=== PATIENT | male | born 1950 ===

== ENCOUNTER 2021-08-05 10:53 | Outpatient (REF) | payer MEDICARE, OTHER, SELFPAY ==
[2021-08-05 12:46] LABS: Hematocrit 39.3 % (42.0-52.0); Mean Corpuscular HGB Conc 33.1 g/dl (31.0-36.0); Mean Corpuscular Hemoglobin 31.8 pg (27.0-33.0); Mean Corpuscular Volume 96.1 fL (80.0-98.0); Platelet Count 302 X10*3/uL (160-400); Red Blood Count 4.09 X10*6/uL (4.60-5.80); Red Cell Distribution Width 15.1 % (11.0-16.0); White Blood Count 4.2 X10*3/uL (4.8-10.8)
[2021-08-05 13:18] LABS: Alanine Aminotransferase 7 U/L (0-40); Albumin Level 4.1 g/dL (3.5-5.0); Alkaline Phosphatase 88 U/L (39-117); Aspartate Amino Transferase 18 U/L (5-37); Bilirubin Direct 0.2 mg/dL (0.0-0.5); Bilirubin Total 0.5 mg/dL (0.0-1.0); C Reactive Protein 0.73 mg/dL (< or = 0.50); Estimated Glomerular Filt Rate > 60; Total Protein 6.9 g/dL (6.5-8.0)
[2021-08-05 13:28] LABS: Erythrocyte Sedimentation Rate 40 MM/HR (0-15)
== END 2021-08-05 10:54 | disposition home or self-care (01) ==
LOC: HO.LAB 10:53
PROVIDERS: PCP Hospitalist; Visit Provider Internal Medicine
DX: M86.9 Osteomyelitis, unspecified (principal)
CPT/HCPCS: 36415; 80076; 82565; 85027; 85652; 86140; 99202

== ENCOUNTER 2021-08-20 08:14 | Outpatient (REF) | payer MEDICARE, OTHER, SELFPAY ==
--- NOTE | 2021-08-20 11:01 | P.PICC_ITS ---
PICC Line Insertion NPICC Diagnosis: OSTEOMYELITIS Indication: HALFWAY IV ANTIBIOTICS Pertinent Labs: REVIEWED Technique: Following informed consent including risks, benefits and alternatives and using sterile technique including cap and mask, sterile gown, glove and drape, the LEFT arm was prepped and draped in the usual sterile fashion of full barrier technique with CHG. Following completion of [place] Protocol the skin and soft tissues were anesthetized with 1% Lidocaine plain. Using ultrasound guidance, BASILIC vein access was obtained IN SINGLE ATTEMPT BY THIS RN; x1 UNSUCCESSFUL ATTEMPT BY RN RUIZ PRIOR, SO TOTAL x2 ATTEMPTS. Over an 0.018 wire through peel-away sheath, a 4-SAO TOMEAN, SINGLE LUMEN, PASV PICC line was positioned. Catheter length is 40 CM internal length, 0 CM external length, for a total trimmed length of 40 CM. The procedure was performed in S-272. Tip verification was performed by Josr De Anda with Sherlock 3CG. Tip located in SVC. Ultrasound was used to document vein patency and for needle entry. A formal ultrasound picture and cardiac rhythm strip was recorded. V[employer] Professor has released the line for use and it is currently dressed with a StatLock, Tegaderm, and CHG disc. Verification has been performed for blood return and line patency. Arm Circumference: 26 CM Equipment: [employer] POWERPICC SOLO Catheter Type: 4-SAO TOMEAN, SINGLE LUMEN, PASV Lot #: [id number]
== END 2021-08-20 08:15 | disposition home or self-care (01) ==
LOC: HO.RADIR 08:14
PROVIDERS: PCP Hospitalist; Visit Provider Internal Medicine
DX: M86.9 Osteomyelitis, unspecified (principal)
CPT/HCPCS: 36573; 96365; C1751; C1894; J0878

== ENCOUNTER 2021-08-20 12:11 | Outpatient (REF) | payer MEDICARE, OTHER, SELFPAY | END 2021-08-20 12:12 | disposition home or self-care (01) | LOC: HO.MDS 12:11 | PROVIDERS: Visit Provider Internal Medicine | DX: M86.8X7 Other osteomyelitis, ankle and foot (principal); B95.62 Methicillin resistant Staphylococcus aureus infection as the cause of diseases classified elsewhere; I70.201 Unspecified atherosclerosis of native arteries of extremities, right leg; Z45.2 Encounter for adjustment and management of vascular access device | CPT/HCPCS: 96365; J0878 ==

== ENCOUNTER 2021-08-21 | Outpatient (REF) | payer MEDICARE, OTHER, SELFPAY | END 2021-08-21 00:01 | disposition home or self-care (01) | LOC: HO.MDS | PROVIDERS: Visit Provider Internal Medicine | DX: M86.8X7 Other osteomyelitis, ankle and foot (principal); R78.81 Bacteremia; B95.62 Methicillin resistant Staphylococcus aureus infection as the cause of diseases classified elsewhere; Z45.2 Encounter for adjustment and management of vascular access device | CPT/HCPCS: 96365 ==

== ENCOUNTER 2021-08-21 07:18 | Outpatient (REF) | payer MEDICARE, OTHER, SELFPAY | END 2021-08-21 07:19 | disposition home or self-care (01) | LOC: HO.MDS 07:18 | PROVIDERS: Visit Provider Internal Medicine | DX: M86.8X7 Other osteomyelitis, ankle and foot (principal); B95.62 Methicillin resistant Staphylococcus aureus infection as the cause of diseases classified elsewhere; I70.201 Unspecified atherosclerosis of native arteries of extremities, right leg; Z45.2 Encounter for adjustment and management of vascular access device | CPT/HCPCS: 96365; J0878 ==

== ENCOUNTER 2021-08-22 09:22 | Outpatient (REF) | payer MEDICARE, OTHER, SELFPAY | END 2021-08-22 09:23 | disposition home or self-care (01) | LOC: HO.MDS 09:22 | PROVIDERS: PCP Hospitalist; Visit Provider Internal Medicine | DX: M86.8X7 Other osteomyelitis, ankle and foot (principal); R78.81 Bacteremia; B95.62 Methicillin resistant Staphylococcus aureus infection as the cause of diseases classified elsewhere; Z45.2 Encounter for adjustment and management of vascular access device | CPT/HCPCS: 96365; J0878 ==

== ENCOUNTER 2021-08-23 08:29 | Outpatient (REF) | payer MEDICARE, OTHER, SELFPAY | END 2021-08-23 08:30 | disposition home or self-care (01) | LOC: HO.MDS 08:29 | PROVIDERS: PCP Hospitalist; Visit Provider Internal Medicine | DX: M86.8X7 Other osteomyelitis, ankle and foot (principal); R78.81 Bacteremia; B95.62 Methicillin resistant Staphylococcus aureus infection as the cause of diseases classified elsewhere; Z45.2 Encounter for adjustment and management of vascular access device | CPT/HCPCS: 96365; J0878 ==

== ENCOUNTER 2021-08-24 07:38 | Outpatient (REF) | payer MEDICARE, OTHER, SELFPAY | END 2021-08-24 07:39 | disposition home or self-care (01) | LOC: HO.MDS 07:38 | PROVIDERS: Visit Provider Internal Medicine | DX: M86.8X7 Other osteomyelitis, ankle and foot (principal); R78.81 Bacteremia; B95.62 Methicillin resistant Staphylococcus aureus infection as the cause of diseases classified elsewhere; Z45.2 Encounter for adjustment and management of vascular access device | CPT/HCPCS: 96365; J0878 ==

== ENCOUNTER 2021-08-25 09:37 | Outpatient (REF) | payer MEDICARE, OTHER, SELFPAY | END 2021-08-25 09:38 | disposition home or self-care (01) | LOC: HO.MDS 09:37 | PROVIDERS: Visit Provider Internal Medicine | DX: M86.8X7 Other osteomyelitis, ankle and foot (principal); R78.81 Bacteremia; B95.62 Methicillin resistant Staphylococcus aureus infection as the cause of diseases classified elsewhere; Z45.2 Encounter for adjustment and management of vascular access device | CPT/HCPCS: 96365; J0878 ==

== ENCOUNTER 2021-08-26 07:11 | Outpatient (REF) | payer MEDICARE, OTHER, SELFPAY | END 2021-08-26 07:12 | disposition home or self-care (01) | LOC: HO.MDS 07:11 | PROVIDERS: Visit Provider Internal Medicine | DX: M86.8X7 Other osteomyelitis, ankle and foot (principal); R78.81 Bacteremia; B95.62 Methicillin resistant Staphylococcus aureus infection as the cause of diseases classified elsewhere; Z45.2 Encounter for adjustment and management of vascular access device | CPT/HCPCS: 96365; J0878 ==

== ENCOUNTER 2021-08-27 07:19 | Outpatient (REF) | payer MEDICARE, OTHER, SELFPAY | END 2021-08-27 07:20 | disposition home or self-care (01) | LOC: HO.MDS 07:19 | PROVIDERS: Visit Provider Internal Medicine | DX: M86.8X7 Other osteomyelitis, ankle and foot (principal); R78.81 Bacteremia; B95.62 Methicillin resistant Staphylococcus aureus infection as the cause of diseases classified elsewhere; Z45.2 Encounter for adjustment and management of vascular access device | CPT/HCPCS: 96365; J0878 ==

== ENCOUNTER 2021-08-28 07:15 | Outpatient (REF) | payer MEDICARE, OTHER, SELFPAY | END 2021-08-28 07:16 | disposition home or self-care (01) | LOC: HO.MDS 07:15 | PROVIDERS: Visit Provider Internal Medicine | DX: M86.8X7 Other osteomyelitis, ankle and foot (principal); R78.81 Bacteremia; B95.62 Methicillin resistant Staphylococcus aureus infection as the cause of diseases classified elsewhere; Z45.2 Encounter for adjustment and management of vascular access device | CPT/HCPCS: 96365; J0878 ==

== ENCOUNTER 2021-08-29 09:02 | Outpatient (REF) | payer MEDICARE, OTHER, SELFPAY | END 2021-08-29 09:03 | disposition home or self-care (01) | LOC: HO.MDS 09:02 | PROVIDERS: Visit Provider Internal Medicine | DX: M86.8X7 Other osteomyelitis, ankle and foot (principal); R78.81 Bacteremia; B95.62 Methicillin resistant Staphylococcus aureus infection as the cause of diseases classified elsewhere; Z45.2 Encounter for adjustment and management of vascular access device | CPT/HCPCS: 96365; J0878 ==

== ENCOUNTER 2021-08-30 08:39 | Outpatient (REF) | payer MEDICARE, OTHER, SELFPAY | END 2021-08-30 08:40 | disposition home or self-care (01) | LOC: HO.MDS 08:39 | PROVIDERS: Visit Provider Internal Medicine | DX: M86.8X7 Other osteomyelitis, ankle and foot (principal); R78.81 Bacteremia; B95.62 Methicillin resistant Staphylococcus aureus infection as the cause of diseases classified elsewhere; Z45.2 Encounter for adjustment and management of vascular access device | CPT/HCPCS: 96365; J0878 ==

== ENCOUNTER 2021-08-31 07:09 | Outpatient (REF) | payer MEDICARE, OTHER, SELFPAY | END 2021-08-31 07:10 | disposition home or self-care (01) | LOC: HO.MDS 07:09 | PROVIDERS: Visit Provider Internal Medicine | DX: M86.8X7 Other osteomyelitis, ankle and foot (principal); R78.81 Bacteremia; B95.62 Methicillin resistant Staphylococcus aureus infection as the cause of diseases classified elsewhere; Z45.2 Encounter for adjustment and management of vascular access device | CPT/HCPCS: 96365; J0878 ==

== ENCOUNTER 2021-09-01 09:37 | Outpatient (REF) | payer MEDICARE, OTHER, SELFPAY | END 2021-09-01 09:38 | disposition home or self-care (01) | LOC: HO.MDS 09:37 | PROVIDERS: Visit Provider Internal Medicine | DX: M86.8X7 Other osteomyelitis, ankle and foot (principal); R78.81 Bacteremia; B95.62 Methicillin resistant Staphylococcus aureus infection as the cause of diseases classified elsewhere; Z45.2 Encounter for adjustment and management of vascular access device | CPT/HCPCS: 96365; 99212; J0878 ==

== ENCOUNTER 2021-09-02 07:11 | Outpatient (REF) | payer MEDICARE, OTHER, SELFPAY | END 2021-09-02 07:12 | disposition home or self-care (01) | LOC: HO.MDS 07:11 | PROVIDERS: Visit Provider Internal Medicine | DX: M86.8X7 Other osteomyelitis, ankle and foot (principal); R78.81 Bacteremia; B95.62 Methicillin resistant Staphylococcus aureus infection as the cause of diseases classified elsewhere; Z45.2 Encounter for adjustment and management of vascular access device | CPT/HCPCS: 96365; J0878 ==

== ENCOUNTER 2021-09-03 09:18 | Outpatient (REF) | payer MEDICARE, OTHER, SELFPAY | END 2021-09-03 09:19 | disposition home or self-care (01) | LOC: HO.MDS 09:18 | PROVIDERS: Visit Provider Internal Medicine | DX: M86.8X7 Other osteomyelitis, ankle and foot (principal); R78.81 Bacteremia; B95.62 Methicillin resistant Staphylococcus aureus infection as the cause of diseases classified elsewhere; Z45.2 Encounter for adjustment and management of vascular access device | CPT/HCPCS: 96365; J0878 ==

== ENCOUNTER 2021-09-04 07:08 | Outpatient (REF) | payer MEDICARE, OTHER, SELFPAY | END 2021-09-04 07:09 | disposition home or self-care (01) | LOC: HO.MDS 07:08 | PROVIDERS: Visit Provider Internal Medicine | DX: M86.8X7 Other osteomyelitis, ankle and foot (principal); R78.81 Bacteremia; B95.62 Methicillin resistant Staphylococcus aureus infection as the cause of diseases classified elsewhere; Z45.2 Encounter for adjustment and management of vascular access device | CPT/HCPCS: 96365; J0878 ==

== ENCOUNTER 2021-09-05 08:36 | Outpatient (REF) | payer MEDICARE, OTHER, SELFPAY | END 2021-09-05 08:37 | disposition home or self-care (01) | LOC: HO.MDS 08:36 | PROVIDERS: PCP Hospitalist; Visit Provider Internal Medicine | DX: M86.8X7 Other osteomyelitis, ankle and foot (principal); R78.81 Bacteremia; B95.62 Methicillin resistant Staphylococcus aureus infection as the cause of diseases classified elsewhere; Z45.2 Encounter for adjustment and management of vascular access device | CPT/HCPCS: 96365; J0878 ==

== ENCOUNTER 2021-09-06 08:33 | Outpatient (REF) | payer MEDICARE, OTHER, SELFPAY | END 2021-09-06 08:34 | disposition home or self-care (01) | LOC: HO.MDS 08:33 | PROVIDERS: PCP Hospitalist; Visit Provider Internal Medicine | DX: M86.8X7 Other osteomyelitis, ankle and foot (principal); R78.81 Bacteremia; B95.62 Methicillin resistant Staphylococcus aureus infection as the cause of diseases classified elsewhere; Z45.2 Encounter for adjustment and management of vascular access device | CPT/HCPCS: 96365; J0878 ==

== ENCOUNTER 2021-09-07 07:10 | Outpatient (REF) | payer MEDICARE, OTHER, SELFPAY | END 2021-09-07 07:11 | disposition home or self-care (01) | LOC: HO.MDS 07:10 | PROVIDERS: Visit Provider Internal Medicine | DX: M86.8X7 Other osteomyelitis, ankle and foot (principal); R78.81 Bacteremia; B95.62 Methicillin resistant Staphylococcus aureus infection as the cause of diseases classified elsewhere; Z45.2 Encounter for adjustment and management of vascular access device | CPT/HCPCS: 96365; J0878 ==

== ENCOUNTER 2021-09-08 07:10 | Outpatient (REF) | payer MEDICARE, OTHER, SELFPAY | END 2021-09-08 07:11 | disposition home or self-care (01) | LOC: HO.MDS 07:10 | PROVIDERS: Visit Provider Internal Medicine | DX: M86.8X7 Other osteomyelitis, ankle and foot (principal); R78.81 Bacteremia; B95.62 Methicillin resistant Staphylococcus aureus infection as the cause of diseases classified elsewhere; Z45.2 Encounter for adjustment and management of vascular access device | CPT/HCPCS: 96365; J0878 ==

== ENCOUNTER 2021-09-09 07:07 | Outpatient (REF) | payer MEDICARE, OTHER, SELFPAY | END 2021-09-09 07:08 | disposition home or self-care (01) | LOC: HO.MDS 07:07 | PROVIDERS: Visit Provider Internal Medicine | DX: M86.8X7 Other osteomyelitis, ankle and foot (principal); R78.81 Bacteremia; B95.62 Methicillin resistant Staphylococcus aureus infection as the cause of diseases classified elsewhere; Z45.2 Encounter for adjustment and management of vascular access device | CPT/HCPCS: 96365; J0878 ==

== ENCOUNTER 2021-09-10 09:44 | Outpatient (REF) | payer MEDICARE, OTHER, SELFPAY | END 2021-09-10 09:45 | disposition home or self-care (01) | LOC: HO.MDS 09:44 | PROVIDERS: Visit Provider Internal Medicine | DX: M86.8X7 Other osteomyelitis, ankle and foot (principal); R78.81 Bacteremia; B95.62 Methicillin resistant Staphylococcus aureus infection as the cause of diseases classified elsewhere; Z45.2 Encounter for adjustment and management of vascular access device | CPT/HCPCS: 96365; J0878 ==

== ENCOUNTER 2021-09-11 07:02 | Outpatient (REF) | payer MEDICARE, OTHER, SELFPAY | END 2021-09-11 07:03 | disposition home or self-care (01) | LOC: HO.MDS 07:02 | PROVIDERS: Visit Provider Internal Medicine | DX: M86.8X7 Other osteomyelitis, ankle and foot (principal); R78.81 Bacteremia; B95.62 Methicillin resistant Staphylococcus aureus infection as the cause of diseases classified elsewhere; Z45.2 Encounter for adjustment and management of vascular access device | CPT/HCPCS: 96365; J0878 ==

== ENCOUNTER 2021-09-12 08:41 | Outpatient (REF) | payer MEDICARE, OTHER, SELFPAY | END 2021-09-12 08:42 | disposition home or self-care (01) | LOC: HO.MDS 08:41 | PROVIDERS: Visit Provider Internal Medicine | DX: M86.8X7 Other osteomyelitis, ankle and foot (principal); Z45.2 Encounter for adjustment and management of vascular access device | CPT/HCPCS: 96365; J0878 ==

== ENCOUNTER 2021-09-13 08:25 | Outpatient (REF) | payer MEDICARE, OTHER, SELFPAY | END 2021-09-13 08:26 | disposition home or self-care (01) | LOC: HO.MDS 08:25 | PROVIDERS: Visit Provider Internal Medicine | DX: M86.8X7 Other osteomyelitis, ankle and foot (principal); R78.81 Bacteremia; B95.62 Methicillin resistant Staphylococcus aureus infection as the cause of diseases classified elsewhere; Z45.2 Encounter for adjustment and management of vascular access device | CPT/HCPCS: 96365; J0878 ==

== ENCOUNTER 2021-09-14 07:11 | Outpatient (REF) | payer MEDICARE, OTHER, SELFPAY | END 2021-09-14 07:12 | disposition home or self-care (01) | LOC: HO.MDS 07:11 | PROVIDERS: Visit Provider Internal Medicine | DX: M86.8X7 Other osteomyelitis, ankle and foot (principal); R78.81 Bacteremia; B95.62 Methicillin resistant Staphylococcus aureus infection as the cause of diseases classified elsewhere; Z45.2 Encounter for adjustment and management of vascular access device | CPT/HCPCS: 96365; J0878 ==

== ENCOUNTER 2021-09-15 07:06 | Outpatient (REF) | payer MEDICARE, OTHER, SELFPAY | END 2021-09-15 07:07 | disposition home or self-care (01) | LOC: HO.MDS 07:06 | PROVIDERS: Visit Provider Internal Medicine | DX: M86.8X7 Other osteomyelitis, ankle and foot (principal); R78.81 Bacteremia; B95.62 Methicillin resistant Staphylococcus aureus infection as the cause of diseases classified elsewhere; Z45.2 Encounter for adjustment and management of vascular access device | CPT/HCPCS: 96365; J0878 ==

== ENCOUNTER 2021-09-16 07:10 | Outpatient (REF) | payer MEDICARE, OTHER, SELFPAY | END 2021-09-16 07:11 | disposition home or self-care (01) | LOC: HO.MDS 07:10 | PROVIDERS: Visit Provider Internal Medicine | DX: M86.8X7 Other osteomyelitis, ankle and foot (principal); R78.81 Bacteremia; B95.62 Methicillin resistant Staphylococcus aureus infection as the cause of diseases classified elsewhere; Z45.2 Encounter for adjustment and management of vascular access device | CPT/HCPCS: 96365; J0878 ==

== ENCOUNTER 2021-09-17 09:14 | Outpatient (REF) | payer MEDICARE, OTHER, SELFPAY | END 2021-09-17 09:15 | disposition home or self-care (01) | LOC: HO.MDS 09:14 | PROVIDERS: Visit Provider Internal Medicine | DX: M86.8X7 Other osteomyelitis, ankle and foot (principal); R78.81 Bacteremia; B95.62 Methicillin resistant Staphylococcus aureus infection as the cause of diseases classified elsewhere; Z45.2 Encounter for adjustment and management of vascular access device | CPT/HCPCS: 96365; J0878 ==

== ENCOUNTER 2021-09-18 07:06 | Outpatient (REF) | payer MEDICARE, OTHER, SELFPAY | END 2021-09-18 07:07 | disposition home or self-care (01) | LOC: HO.MDS 07:06 | PROVIDERS: Visit Provider Internal Medicine | DX: M86.8X7 Other osteomyelitis, ankle and foot (principal); R78.81 Bacteremia; B95.62 Methicillin resistant Staphylococcus aureus infection as the cause of diseases classified elsewhere; Z45.2 Encounter for adjustment and management of vascular access device | CPT/HCPCS: 96365; J0878 ==

== ENCOUNTER 2021-09-19 08:35 | Outpatient (REF) | payer MEDICARE, OTHER, SELFPAY | END 2021-09-19 08:36 | disposition home or self-care (01) | LOC: HO.MDS 08:35 | PROVIDERS: PCP Hospitalist; Visit Provider Internal Medicine | DX: M86.8X7 Other osteomyelitis, ankle and foot (principal); R78.81 Bacteremia; B95.62 Methicillin resistant Staphylococcus aureus infection as the cause of diseases classified elsewhere; Z45.2 Encounter for adjustment and management of vascular access device | CPT/HCPCS: 96365; J0878 ==

== ENCOUNTER 2021-09-20 09:29 | Outpatient (REF) | payer MEDICARE, OTHER, SELFPAY | END 2021-09-20 09:30 | disposition home or self-care (01) | LOC: HO.MDS 09:29 | PROVIDERS: PCP Hospitalist; Visit Provider Internal Medicine | DX: M86.8X7 Other osteomyelitis, ankle and foot (principal); R78.81 Bacteremia; B95.62 Methicillin resistant Staphylococcus aureus infection as the cause of diseases classified elsewhere; Z45.2 Encounter for adjustment and management of vascular access device | CPT/HCPCS: 96365; J0878 ==

== ENCOUNTER 2021-09-21 07:14 | Outpatient (REF) | payer MEDICARE, OTHER, SELFPAY | END 2021-09-21 07:15 | disposition home or self-care (01) | LOC: HO.MDS 07:14 | PROVIDERS: Visit Provider Internal Medicine | DX: M86.8X7 Other osteomyelitis, ankle and foot (principal); R78.81 Bacteremia; B95.62 Methicillin resistant Staphylococcus aureus infection as the cause of diseases classified elsewhere; Z45.2 Encounter for adjustment and management of vascular access device | CPT/HCPCS: 96365; J0878 ==

== ENCOUNTER 2021-09-22 07:05 | Outpatient (REF) | payer MEDICARE, OTHER, SELFPAY | END 2021-09-22 07:06 | disposition home or self-care (01) | LOC: HO.MDS 07:05 | PROVIDERS: Visit Provider Internal Medicine | DX: M86.8X7 Other osteomyelitis, ankle and foot (principal); R78.81 Bacteremia; B95.62 Methicillin resistant Staphylococcus aureus infection as the cause of diseases classified elsewhere; Z45.2 Encounter for adjustment and management of vascular access device | CPT/HCPCS: 96365; J0878 ==

== ENCOUNTER 2021-09-23 07:05 | Outpatient (REF) | payer MEDICARE, OTHER, SELFPAY | END 2021-09-23 07:06 | disposition home or self-care (01) | LOC: HO.MDS 07:05 | PROVIDERS: Visit Provider Internal Medicine | DX: M86.8X7 Other osteomyelitis, ankle and foot (principal); R78.81 Bacteremia; B95.62 Methicillin resistant Staphylococcus aureus infection as the cause of diseases classified elsewhere; Z45.2 Encounter for adjustment and management of vascular access device | CPT/HCPCS: 96365; J0878 ==

== ENCOUNTER 2021-09-24 09:13 | Outpatient (REF) | payer MEDICARE, OTHER, SELFPAY | END 2021-09-24 09:14 | disposition home or self-care (01) | LOC: HO.MDS 09:13 | PROVIDERS: Visit Provider Internal Medicine | DX: M86.8X7 Other osteomyelitis, ankle and foot (principal); R78.81 Bacteremia; B95.62 Methicillin resistant Staphylococcus aureus infection as the cause of diseases classified elsewhere; Z45.2 Encounter for adjustment and management of vascular access device | CPT/HCPCS: 96365; J0878 ==

== ENCOUNTER 2021-09-25 07:14 | Outpatient (REF) | payer MEDICARE, OTHER, SELFPAY | END 2021-09-25 07:15 | disposition home or self-care (01) | LOC: HO.MDS 07:14 | PROVIDERS: Visit Provider Internal Medicine | DX: M86.8X7 Other osteomyelitis, ankle and foot (principal); R78.81 Bacteremia; B95.62 Methicillin resistant Staphylococcus aureus infection as the cause of diseases classified elsewhere; Z45.2 Encounter for adjustment and management of vascular access device | CPT/HCPCS: 96365; J0878 ==

== ENCOUNTER 2021-09-26 08:31 | Outpatient (REF) | payer MEDICARE, OTHER, SELFPAY | END 2021-09-26 08:32 | disposition home or self-care (01) | LOC: HO.MDS 08:31 | PROVIDERS: Visit Provider Internal Medicine | DX: M86.8X7 Other osteomyelitis, ankle and foot (principal); R78.81 Bacteremia; B95.62 Methicillin resistant Staphylococcus aureus infection as the cause of diseases classified elsewhere; Z45.2 Encounter for adjustment and management of vascular access device | CPT/HCPCS: 96365; J0878 ==

== ENCOUNTER 2021-09-27 08:33 | Outpatient (REF) | payer MEDICARE, OTHER, SELFPAY | END 2021-09-27 08:34 | disposition home or self-care (01) | LOC: HO.MDS 08:33 | PROVIDERS: Visit Provider Internal Medicine | DX: M86.8X7 Other osteomyelitis, ankle and foot (principal); R78.81 Bacteremia; B95.62 Methicillin resistant Staphylococcus aureus infection as the cause of diseases classified elsewhere; Z45.2 Encounter for adjustment and management of vascular access device | CPT/HCPCS: 96365; J0878 ==

== ENCOUNTER 2021-09-28 07:01 | Outpatient (REF) | payer MEDICARE, OTHER, SELFPAY | END 2021-09-28 07:02 | disposition home or self-care (01) | LOC: HO.MDS 07:01 | PROVIDERS: Visit Provider Internal Medicine | DX: M86.8X7 Other osteomyelitis, ankle and foot (principal); R78.81 Bacteremia; B95.62 Methicillin resistant Staphylococcus aureus infection as the cause of diseases classified elsewhere; Z45.2 Encounter for adjustment and management of vascular access device | CPT/HCPCS: 96365; J0878 ==

== ENCOUNTER 2021-09-29 07:04 | Outpatient (REF) | payer MEDICARE, OTHER, SELFPAY | END 2021-09-29 07:05 | disposition home or self-care (01) | LOC: HO.MDS 07:04 | PROVIDERS: Visit Provider Internal Medicine | DX: M86.8X7 Other osteomyelitis, ankle and foot (principal); R78.81 Bacteremia; B95.62 Methicillin resistant Staphylococcus aureus infection as the cause of diseases classified elsewhere; Z45.2 Encounter for adjustment and management of vascular access device | CPT/HCPCS: 96365; J0878 ==

== ENCOUNTER 2021-09-30 10:32 | Outpatient (REF) | payer MEDICARE, OTHER, SELFPAY ==
--- NOTE | 2021-09-30 12:23 | HO.MIDLINE ---
PICC Line Insertion NPICC REMOVAL REMOVAL OF PICC LINE 1. 09/30/2021 2. REASON FOR REMOVAL: NO LONGER NEEDED 3. INSERTED LENGTH: 40CM SINGLE LUMEN PICC 4. REMOVED LENGTH: 40CM INTACT SINGLE LUMEN PICC 5. A DRESSING WAS PLACED (XEOFORM/GAUAZE/TEGADERM) OVER THE REMOVAL SITE (LEFT BASILIC VEIN) NO BLEEDING/EDEMATOUS NOTED. PT TOLERATED THIS.
== END 2021-09-30 10:33 | disposition home or self-care (01) ==
LOC: HO.MDS 10:32
PROVIDERS: Visit Provider Internal Medicine
DX: M86.8X7 Other osteomyelitis, ankle and foot (principal); R78.81 Bacteremia; B95.62 Methicillin resistant Staphylococcus aureus infection as the cause of diseases classified elsewhere; Z45.2 Encounter for adjustment and management of vascular access device
CPT/HCPCS: 96365; 99212; J0878

== ENCOUNTER → 2022-04-14 10:10 | Outpatient (BNVA) | payer MEDICARE, OTHER, SELFPAY | PROVIDERS: PCP Hospitalist; Visit Provider Internal Medicine | DX: M86.9 Osteomyelitis, unspecified (principal); L97.524 Non-pressure chronic ulcer of other part of left foot with necrosis of bone | CPT/HCPCS: 99202; 99212 ==